=== PATIENT | female | born 1990 | race Caucasian/White ===

== ENCOUNTER 2017-11-11 18:20 | Emergency (ER) | payer MEDICAID ==
[~2017-11-11] VITALS: Ht 157.5 cm; Wt 104.3 kg
[2017-11-11 18:39] VITALS: Ht 157.5 cm; Wt 104.3 kg
[2017-11-11 19:30] VITALS: BP 143/84
== END 2017-11-11 19:30 | disposition home or self-care (01) ==
LOC: ED 18:20
DX: F41.1 Generalized anxiety disorder (principal)